=== PATIENT | male | born 1980 | race Caucasian/White ===

== ENCOUNTER 2022-05-25 12:35 | Day surgery (SDC) | payer BC ==
[~2022-05-25] VITALS: Ht 172.7 cm; Wt 96.2 kg
[~2022-05-25 12:35] MED LIST: CEPH500 PO; DIPH50; HYDACE5325 PO; POLTRIOPSO OD
== END 2022-05-25 15:29 | disposition home or self-care (01) ==
LOC: ORSCSDS 12:35
PROVIDERS: Surgery
PROC: 0DJD8ZZ Inspection of Lower Intestinal Tract, Via Natural or Artificial Opening Endoscopic (ICD-10-PCS; principal; 2022-05-25 14:30)
DX: K62.5 Hemorrhage of anus and rectum (principal); K64.8 Other hemorrhoids
CPT/HCPCS: J0330; J0461; J2250; J2405; J2704; J7120; Q9968

== ENCOUNTER 2022-12-04 12:25 | Emergency (ER) | payer BC ==
[~2022-12-04] VITALS: Ht 172.7 cm; Wt 99.8 kg
[2022-12-04 12:29] VITALS: BP 161/94
== END 2022-12-04 13:39 | disposition home or self-care (01) ==
LOC: ER 12:25
DX: S93.601A Unspecified sprain of right foot, initial encounter (principal); W20.8XXA Other cause of strike by thrown, projected or falling object, initial encounter
CPT/HCPCS: 73630; 96372; 99283-25; A9270; J1885

== ENCOUNTER 2022-12-11 14:49 | Emergency (ER) | payer BC ==
[~2022-12-11] VITALS: Ht 172.7 cm; Wt 99.8 kg
[2022-12-11 14:54] VITALS: BP 136/76
== END 2022-12-11 16:43 | disposition home or self-care (01) ==
LOC: ER 14:49
DX: S90.31XA Contusion of right foot, initial encounter (principal); W20.8XXA Other cause of strike by thrown, projected or falling object, initial encounter
CPT/HCPCS: 73630; 99283-25

== ENCOUNTER 2024-05-30 05:57 | Day surgery (SDC) | payer OTHER ==
[2024-05-30] VITALS (13 sets, daily range): BP systolic 89–147; BP diastolic 42–92
[~2024-05-30] VITALS: Ht 173 cm; Wt 100.0 kg
[2024-05-30] MEDS ORDERED: Tranexamic Acid 100 ML IV SCH (06:15)
[2024-05-30] MEDS ORDERED: CeFAZolin Sodium 2,000 MG in NS 100 ML IV SCH (06:15)
[2024-05-30] MEDS ORDERED: Lactated Ringer's 1,000 ML IV SCH (06:15)
[2024-05-30] MEDS ORDERED: Dexmedetomidine HCL 200 MCG / 2 ML ONE (06:21)
[2024-05-30] MEDS ORDERED: Ropivacaine 0.5% HCL/PF 5 MG/ML 30ML Vial ONE (06:21)
[2024-05-30] MEDS ORDERED: Lidocaine HCl 4% 5 ML SDA ONE (06:22)
[2024-05-30] MEDS ORDERED: propofoL 200 ML IV ONE (06:22)
[2024-05-30] MEDS ORDERED: Ketorolac Tromethamine 30mg Vial ONE (06:39)
[2024-05-30] MEDS ORDERED: EpiNEPhrine 1 MG/1 ML 1ML Vial ONE (06:39)
[2024-05-30] MEDS ORDERED: Ondansetron HCl 2 MG / ML 2ML Vial ONE (06:39)
[2024-05-30] MEDS ORDERED: Dexamethasone Sod Phos 10 MG/ML 1ML VIAL ONE (06:39)
[2024-05-30] MEDS ORDERED: Lidocaine HCl 2% 20 ML MDV ONE (06:41)
[2024-05-30] MEDS ORDERED: HYDROmorphone HCl 0.5 MG/0.5 ML SYR ONE (06:42)
[2024-05-30] MEDS ORDERED: EPINEPhrine HCl 1 MG / ML 30ML Vial ONE (07:03)
[2024-05-30] MEDS ORDERED: Acetaminophen 500 MG Tab PO ONE (07:20)
--- NOTE | 2024-05-30 08:17 | NUR ---
05/30/24 0817 SharleneMike villalobosAudrey 1MG EPINEPHRINE INTILLED INTO EACH 3L BAG OF NS.
[2024-05-30] MEDS ORDERED: FentaNYL Citrate 50 MCG/ML 2 ML Injection ONE (08:33)
[2024-05-30] MEDS ORDERED: Bupivacaine 0.5% W/EPI 1:200000 SDV 30 ML Vial ONE (09:10)
[2024-05-30] MEDS ORDERED: OxyCODONE HCL 5 MG TAB PO PRN ×2 (09:35→09:50)
--- NOTE | 2024-05-30 11:05 | NUR ---
DISCHARGE NOTE PT A&OX4, BREATHING RA, NO COMPLAINTS, TOLERATING PO INTAKE. PT UNABLE TO FEEL R ARM, FINGERS TO OPERATIVE ARM ARE PWD, PT ABLE TO WIGGLE FINGERS. SLING AND POLAR PACK IN [place]. Patient up to Ambulate independently. Gait steady. Discharge instructions reviewed with patient. Patient verbalizes understanding. Copy given to patient to take home. Dressing to procedure site clean, dry, intact with no visible drainage, swelling, erythema or bruising noted. Discharged via wheelchair to private car for ride home.
== END 2024-05-30 11:05 | disposition home or self-care (01) ==
LOC: ORSCMMR 05:57 → ORD 07:30 → ORSCMMR 11:05 → ORSCSDS 06-05 10:15
PROVIDERS: Orthopaedic Surgery Sports Medicine
PROC: 0RQJ4ZZ Repair Right Shoulder Joint, Percutaneous Endoscopic Approach (ICD-10-PCS; principal; 2024-05-30 07:30)
PROC: 0LM14ZZ Reattachment of Right Shoulder Tendon, Percutaneous Endoscopic Approach (ICD-10-PCS; principal; 2024-05-30 07:30)
PROC: 0LS34ZZ Reposition Right Upper Arm Tendon, Percutaneous Endoscopic Approach (ICD-10-PCS; principal; 2024-05-30 07:30)
DX: S43.431A Superior glenoid labrum lesion of right shoulder, initial encounter (principal); M25.311 Other instability, right shoulder; M75.21 Bicipital tendinitis, right shoulder; M75.101 Unspecified rotator cuff tear or rupture of right shoulder, not specified as traumatic
CPT/HCPCS: A9270; C1713; J0171; J0690; J1100; J1171; J1885; J2003; J2405; J2704; J2795; J3010; J7120